=== PATIENT | female | born 1990 | race Caucasian/White ===

== ENCOUNTER 2018-03-15 20:34 | Emergency (ER) | payer OTHER ==
[~2018-03-15] VITALS: Ht 162.6 cm; Wt 53.5 kg
[2018-03-15] MEDS ORDERED: CYMBALTA60 MG (20:44)
[2018-03-15] MEDS ORDERED: CLONAZEPAM 1 MG1 M1 PO (20:45)
[2018-03-15] MEDS ORDERED: ACETAMINOPHEN-1 EAC1 PO (20:59)
[2018-03-15 21:10] VITALS: BP 121/81
== END 2018-03-15 21:12 | disposition home or self-care (01) ==
LOC: M.ERS 20:34
DX: M67.431 Ganglion, right wrist (principal); F32.9 Major depressive disorder, single episode, unspecified; F41.9 Anxiety disorder, unspecified; Z98.890 Other specified postprocedural states; Z88.8 Allergy status to other drugs, medicaments and biological substances

== ENCOUNTER 2018-04-15 02:34 | Emergency (ER) | payer OTHER ==
[~2018-04-15] VITALS: Ht 165.1 cm; Wt 53.1 kg
[~2018-04-15 02:34] MED LIST: ACETAMINOPHEN-1 EAC1 PO; CLONAZEPAM 1 MG1 M1 PO; CYMBALTA60 MG
[2018-04-15 03:18] LABS: URINE BILIRUBIN NEGATIVE (Negative); URINE BLOOD 3+ (Negative); URINE CLARITY CLEAR; URINE COLOR YELLOW; URINE GLUCOSE-RANDOM NEGATIVE (Negative); URINE KETONES NEGATIVE (Negative); URINE LEUKOCYTES TRACE (Negative); URINE NITRITE NEGATIVE (Negative); URINE PROTEIN NEGATIVE (Negative); URINE UROBILINOGEN 0.2 E.U./dl (0.2-1.0)
[2018-04-15 03:23] LABS: AMP/METHAMP Negative (Negative); BARBITURATES Negative (Negative); BENZODIAZEPINES Negative (Negative); COCAINE Negative (Negative); METHADONE Negative (Negative); OPIATES Negative (Negative); PCP Negative (Negative); THC Negative (Negative)
[2018-04-15 03:29] LABS: HEMATOCRIT 41.5 % (37.0-47.0); HEMOGLOBIN 14.2 gm/dL (12.0-15.0); MCH 30.3 pg (26.0-34.0); MCHC 34.3 g/dL (28.0-37.0); MCV 88.3 fL (80.0-100.0); MPV 8.8 fl. (7.2-11.1); RBC 4.69 mil/uL (4.20-5.00); RDW-CV 14.9 % (10.5-14.5); WBC 4.6 thou/uL (4.0-11.0)
[2018-04-15 03:34] LABS: CASTS None Seen /LPF (None Seen); SQUAMOUS 4-10 Moderate /LPF (0-3)
[2018-04-15 03:35] LABS: CALCIUM 9.3 mg/dL (8.5-10.1); CREATININE 0.8 mg/dL (0.6-1.3); POTASSIUM 3.9 mmol/L (3.5-5.1)
[2018-04-15 03:35] LABS: URINE WBC 0-5 Rare /HPF (0-5)
[2018-04-15 03:36] LABS: BACTERIA 1-9 Few /HPF (None Seen); CRYSTALS None Seen /LPF (None Seen)
[2018-04-15 03:40] LABS: ACETAMINOPHEN < 2 ug/mL (10-30); ALBUMIN 4.5 g/dL (3.4-5.0); ALCOHOL < 10 mg/dL (<10); SALICYLATE < 2.8 mg/dL (2.8-20.0); TOTAL BILIRUBIN 0.4 mg/dL (<0.1-1.0)
[2018-04-15] MEDS ORDERED: AMITRIPTYLINE H75 M1 PO (05:32)
[2018-04-15 05:58] VITALS: BP 106/77
[2018-04-15] MEDS ORDERED: CLONAZEPAM 1 MG1 M1 PO (15:07)
[2018-04-15] MEDS ORDERED: CLONAZEPAM 0.50.5 M1 PO (15:54)
[2018-04-15] MEDS ORDERED: HYDROXYZINE HCL25 M1 PO (15:57)
== END 2018-04-15 05:58 | disposition home or self-care (01) ==
LOC: M.ERS 02:34
PROVIDERS: Personal Emergency Response Attendant
DX: G47.00 Insomnia, unspecified (principal); F41.9 Anxiety disorder, unspecified; F32.9 Major depressive disorder, single episode, unspecified; Z98.890 Other specified postprocedural states

== ENCOUNTER 2018-04-15 14:43 | Emergency (ER) | payer OTHER ==
[~2018-04-15] VITALS: Ht 165.1 cm; Wt 53.1 kg
[~2018-04-15 14:43] MED LIST changes: +AMITRIPTYLINE H75 M1 PO
[2018-04-15] MEDS ORDERED: CLONAZEPAM 1 MG1 M1 PO (15:07)
[2018-04-15] MEDS ORDERED: CLONAZEPAM 0.50.5 M1 PO (15:54)
[2018-04-15] MEDS ORDERED: HYDROXYZINE HCL25 M1 PO (15:57)
[2018-04-15 16:15] VITALS: BP 125/85
== END 2018-04-15 16:15 | disposition home or self-care (01) ==
LOC: M.ERS 14:43
DX: Z76.0 Encounter for issue of repeat prescription (principal); F41.9 Anxiety disorder, unspecified; F32.9 Major depressive disorder, single episode, unspecified; Z98.890 Other specified postprocedural states; Z88.8 Allergy status to other drugs, medicaments and biological substances

== ENCOUNTER 2018-08-12 11:37 | Emergency (ER) | payer MEDICAID ==
[~2018-08-12] VITALS: Ht 165.1 cm; Wt 59.0 kg
[~2018-08-12 11:37] MED LIST changes: +CLONAZEPAM 0.50.5 M1 PO; +HYDROXYZINE HCL25 M1 PO
[2018-08-12 11:40] VITALS: BP 115/80
[2018-08-12] MEDS ORDERED: LIDOCAINE VISC100 ML SWISH&SPIT (11:53)
[2018-08-12] MEDS ORDERED: ACETAMINOPHEN-1 EAC1 PO (11:53)
[2018-08-12] MEDS ORDERED: AMOXICILLIN 50500 MG PO (11:53)
== END 2018-08-12 12:00 | disposition home or self-care (01) ==
LOC: M.ERS 11:37
DX: K12.0 Recurrent oral aphthae (principal); F32.9 Major depressive disorder, single episode, unspecified; F41.9 Anxiety disorder, unspecified; Z98.890 Other specified postprocedural states

== ENCOUNTER 2018-08-14 00:46 | Emergency (ER) | payer MEDICAID ==
[~2018-08-14] VITALS: Ht 165.1 cm; Wt 59.0 kg
[~2018-08-14 00:46] MED LIST changes: +AMOXICILLIN 50500 MG PO; +LIDOCAINE VISC100 ML SWISH&SPIT
[2018-08-14 01:24] LABS: URINE BILIRUBIN NEGATIVE (Negative); URINE BLOOD NEGATIVE (Negative); URINE CLARITY CLEAR; URINE COLOR YELLOW; URINE GLUCOSE-RANDOM NEGATIVE (Negative); URINE KETONES NEGATIVE (Negative); URINE LEUKOCYTES-REFLEX NEGATIVE (Negative); URINE NITRITE-REFLEX NEGATIVE (Negative); URINE PROTEIN NEGATIVE (Negative); URINE SPECIFIC GRAVITY 1.025 (1.005-1.030); URINE UROBILINOGEN 0.2 E.U./dl (0.2-1.0)
[2018-08-14] MEDS ORDERED: FLAGYL500 M1 PO (02:04)
[2018-08-14] MEDS ORDERED: ACYCLOVIR 800800 MG PO (02:04)
[2018-08-14 02:10] VITALS: BP 114/83
== END 2018-08-14 02:10 | disposition home or self-care (01) ==
LOC: M.ERS 00:46
PROVIDERS: Emergency Medicine Emergency Medical Services
DX: N76.0 Acute vaginitis (principal); B96.89 Other specified bacterial agents as the cause of diseases classified elsewhere; B00.9 Herpesviral infection, unspecified; K08.89 Other specified disorders of teeth and supporting structures; F32.9 Major depressive disorder, single episode, unspecified; F41.9 Anxiety disorder, unspecified; Z98.890 Other specified postprocedural states

== ENCOUNTER 2018-09-08 19:19 | Emergency (ER) | payer MEDICAID ==
[~2018-09-08] VITALS: Ht 165.1 cm; Wt 57.1 kg
[~2018-09-08 19:19] MED LIST changes: +ACYCLOVIR 800800 MG PO; +FLAGYL500 M1 PO
[2018-09-08 19:26] VITALS: BP 123/77
[2018-09-08] MEDS ORDERED: IBUPROFEN 600600 M1 PO (19:28)
[2018-09-08] MEDS ORDERED: ACETAMINOPHEN-1 EAC1 PO ×2 (19:46→19:52)
== END 2018-09-08 20:00 | disposition home or self-care (01) ==
LOC: M.ERS 19:19
DX: K08.89 Other specified disorders of teeth and supporting structures (principal); F17.200 Nicotine dependence, unspecified, uncomplicated; F32.9 Major depressive disorder, single episode, unspecified; F41.9 Anxiety disorder, unspecified; Z98.890 Other specified postprocedural states

== ENCOUNTER 2018-09-25 11:20 | Emergency (ER) | payer MEDICAID ==
[~2018-09-25] VITALS: Ht 165.1 cm; Wt 59.0 kg
[~2018-09-25 11:20] MED LIST changes: +IBUPROFEN 600600 M1 PO
[2018-09-25 11:30] VITALS: BP 132/82
[2018-09-25] MEDS ORDERED: TYLENOL325 MG PO (11:35)
[2018-09-25] MEDS ORDERED: CBD GUMMIES PO (11:35)
[2018-09-25] MEDS ORDERED: [UNRECOGNIZED DRUG - OTHER] MISCELL (11:49)
== END 2018-09-25 12:00 | disposition home or self-care (01) ==
LOC: M.ERS 11:20
DX: M79.672 Pain in left foot (principal); F32.9 Major depressive disorder, single episode, unspecified; F41.9 Anxiety disorder, unspecified; Z98.890 Other specified postprocedural states

== ENCOUNTER 2019-01-10 09:31 | Emergency (ER) | payer MEDICAID ==
[~2019-01-10] VITALS: Ht 165.1 cm; Wt 59.0 kg
[~2019-01-10 09:31] MED LIST changes: +CBD GUMMIES PO; +TYLENOL325 MG PO; +[UNRECOGNIZED DRUG - OTHER] MISCELL
[2019-01-10] MEDS ORDERED: BRINTELLIX10 MG PO (09:39)
[2019-01-10] MEDS ORDERED: VISTARIL 25 MG25 M1 PO (09:40)
[2019-01-10] MEDS ORDERED: ULTRAM 50MG TAB50 MG PO (11:04)
[2019-01-10 11:15] VITALS: BP 110/78
== END 2019-01-10 11:16 | disposition home or self-care (01) ==
LOC: M.ERS 09:31
DX: M79.672 Pain in left foot (principal); F32.9 Major depressive disorder, single episode, unspecified; F41.9 Anxiety disorder, unspecified; Z98.890 Other specified postprocedural states

== ENCOUNTER 2019-02-24 14:14 | Emergency (ER) | payer MEDICAID ==
[~2019-02-24] VITALS: Ht 165.1 cm; Wt 59.0 kg
[~2019-02-24 14:14] MED LIST changes: +BRINTELLIX10 MG PO; +ULTRAM 50MG TAB50 MG PO; +VISTARIL 25 MG25 M1 PO
[2019-02-24] MEDS ORDERED: LUNESTA3 MG PO (14:22)
[2019-02-24] MEDS ORDERED: TYLENOL WITH CO1 TA1 PO (14:59)
[2019-02-24] MEDS ORDERED: ONDANSETRON HCL4 M2 PO (14:59)
[2019-02-24] MEDS ORDERED: AMOXICILLIN 50500 MG PO (14:59)
[2019-02-24 15:06] LABS: INFLUENZA A ANTIGEN Negative (Negative); INFLUENZA B ANTIGEN Negative (Negative)
[2019-02-24 15:20] VITALS: BP 123/62
== END 2019-02-24 15:20 | disposition home or self-care (01) ==
LOC: M.ERS 14:14
PROVIDERS: Physician Assistant
DX: J02.0 Streptococcal pharyngitis (principal); F41.9 Anxiety disorder, unspecified; F32.9 Major depressive disorder, single episode, unspecified; Z98.890 Other specified postprocedural states

== ENCOUNTER 2019-03-02 10:25 | Emergency (ER) | payer MEDICAID ==
[~2019-03-02] VITALS: Ht 165.1 cm; Wt 59.0 kg
[~2019-03-02 10:25] MED LIST changes: +LUNESTA3 MG PO; +ONDANSETRON HCL4 M2 PO; +TYLENOL WITH CO1 TA1 PO
[2019-03-02 10:41] LABS: URINE BILIRUBIN NEGATIVE (Negative); URINE BLOOD 2+ (Negative); URINE CLARITY CLEAR; URINE COLOR YELLOW; URINE GLUCOSE-RANDOM NEGATIVE (Negative); URINE KETONES NEGATIVE (Negative); URINE PROTEIN 1+ (Negative); URINE SPECIFIC GRAVITY 1.015 (1.005-1.030)
[2019-03-02 10:43] LABS: URINE LEUKOCYTES-REFLEX 2+ (Negative); URINE NITRITE-REFLEX POSITIVE (Negative)
[2019-03-02 10:47] LABS: CASTS None Seen /LPF (None Seen); CRYSTALS None Seen /LPF (None Seen); MUCUS None Seen strn/LPF (None Seen); SQUAMOUS 0-3 Few /LPF (0-3); URINE WBC-REFLEX >25 Many /HPF (0-5)
[2019-03-02 10:51] LABS: ABSOLUTE EOSINOPHILS 0.2 thou/uL (0.0-0.7); ABSOLUTE LYMPHOCYTES 1.6 thou/uL (0.8-5.3); ABSOLUTE MONOCYTES 0.7 thou/uL (0.0-1.2); ABSOLUTE NEUTROPHILS 8.6 thou/uL (1.6-8.1); BASOPHILS 0.3 %; EOSINOPHILS 1.9 %; HEMATOCRIT 44.5 % (37.0-47.0); HEMOGLOBIN 15.3 gm/dL (12.0-15.0); LYMPHOCYTES 14.6 %; MCH 30.7 pg (26.0-34.0); MCHC 34.4 g/dL (28.0-37.0); MCV 89.3 fL (80.0-100.0); MONOCYTES 6.1 %; MPV 8.9 fl. (7.2-11.1); NUCLEATED RBCS 0 /100WBC; PLATELET COUNT* 296 thou/uL (150-400); POLYS 77.1 %; RBC 4.98 mil/uL (4.20-5.00); RDW-CV 12.7 % (10.5-14.5); WBC 11.1 thou/uL (4.0-11.0)
[2019-03-02 10:59] LABS: CALCIUM 9.5 mg/dL (8.5-10.1); CREATININE 0.7 mg/dL (0.6-1.3); POTASSIUM 3.8 mmol/L (3.5-5.1)
[2019-03-02 11:06] LABS: ALBUMIN 4.7 g/dL (3.4-5.0); TOTAL BILIRUBIN 0.7 mg/dL (<0.1-1.0); TOTAL PROTEIN 9.1 g/dL (6.4-8.2)
[2019-03-02] MEDS ORDERED: LEVAQUIN 750 M750 MG PO (11:16)
[2019-03-02] MEDS ORDERED: IBUPROFEN 800800 M1 PO (11:16)
[2019-03-02] MEDS ORDERED: ONDANSETRON HCL4 M2 PO (11:16)
[2019-03-02 12:01] VITALS: BP 105/62
== END 2019-03-02 12:02 | disposition home or self-care (01) ==
LOC: M.ERS 10:25
PROVIDERS: Nurse Practitioner Family
DX: N39.0 Urinary tract infection, site not specified (principal); R11.2 Nausea with vomiting, unspecified

== ENCOUNTER 2019-04-20 08:26 | Emergency (ER) | payer MEDICAID ==
[~2019-04-20] VITALS: Ht 167.6 cm; Wt 62.1 kg
[~2019-04-20 08:26] MED LIST changes: +IBUPROFEN 800800 M1 PO; +LEVAQUIN 750 M750 MG PO
[2019-04-20] MEDS ORDERED: LUNESTA1 MG PO (08:47)
[2019-04-20 08:57] LABS: ABSOLUTE EOSINOPHILS 0.1 thou/uL (0.0-0.7); ABSOLUTE LYMPHOCYTES 3.5 thou/uL (0.8-5.3); ABSOLUTE MONOCYTES 0.7 thou/uL (0.0-1.2); ABSOLUTE NEUTROPHILS 5.4 thou/uL (1.6-8.1); BASOPHILS 0.4 %; EOSINOPHILS 0.5 %; HEMATOCRIT 45.1 % (37.0-47.0); HEMOGLOBIN 15.7 gm/dL (12.0-15.0); LYMPHOCYTES 36.6 %; MCH 30.3 pg (26.0-34.0); MCHC 34.7 g/dL (28.0-37.0); MCV 87.2 fL (80.0-100.0); MONOCYTES 7.1 %; MPV 8.7 fl. (7.2-11.1); NUCLEATED RBCS 0 /100WBC; PLATELET COUNT* 238 thou/uL (150-400); POLYS 55.4 %; RBC 5.18 mil/uL (4.20-5.00); RDW-CV 13.1 % (10.5-14.5); WBC 9.7 thou/uL (4.0-11.0)
[2019-04-20 09:06] LABS: CALCIUM 8.8 mg/dL (8.5-10.1); CREATININE 0.6 mg/dL (0.6-1.3); POTASSIUM 3.8 mmol/L (3.5-5.1)
[2019-04-20 09:10] LABS: ALBUMIN 4.4 g/dL (3.4-5.0); TOTAL BILIRUBIN 0.9 mg/dL (<0.1-1.0); TOTAL PROTEIN 8.2 g/dL (6.4-8.2)
[2019-04-20] MEDS ORDERED: KEFLEX500 M1 PO (11:27)
[2019-04-20] MEDS ORDERED: ZOFRAN ODT4 MG PO (11:27)
[2019-04-20 12:13] VITALS: BP 92/50
== END 2019-04-20 12:14 | disposition home or self-care (01) ==
LOC: M.ERS 08:26
PROVIDERS: Personal Emergency Response Attendant
DX: K52.9 Noninfective gastroenteritis and colitis, unspecified (principal); E86.0 Dehydration; F32.9 Major depressive disorder, single episode, unspecified; F41.9 Anxiety disorder, unspecified; Z98.890 Other specified postprocedural states